=== PATIENT | male | born 1955 | race Caucasian/White ===

== ENCOUNTER 2017-02-18 23:03 | Observation (INO) | payer MEDICAID ==
[2017-02-19] MEDS ORDERED: Sodium Chloride 0.9% 10 ML Syringe FLUSH PRN (00:19)
[2017-02-19] MEDS ORDERED: HYDROmorphone 1 MG/ML Syringe IVPUSH ONE (00:19)
[2017-02-19] MEDS ORDERED: Iopamidol 612 MG/ML 100 ML Bottle IV PRN (02:42)
--- NOTE | 2017-02-19 03:24 | EDM.PDOC ---
ED HPI LOWER BACK PAIN/INJURY - General Chief Complaint: Back Pain or Injury Stated Complaint: fell hurt back Time Seen by Provider: 02/19/17 00:19 Source: Reports: Patient History Limitations: Reports: No limitations - History of Present Illness INITIAL COMMENTS - FREE TEXT/NARRATIVE: This patient was working on a ladder about mid afternoon when he fell approximately 4 or 5 feet. He landed on his rear end and back. He he said that at first it didn't hurt but after a few hours she started having a lot of lumbar pain on the left side. He denies any muscle weakness or any radiation to his legs. When the pain got worse his brought him to the hospital. He' s not having any kind of shortness of breath or chest pain. - Related Data Allergies/ADRs: Allergies Allergy/AdvReac Type Severity Reaction Status Date / Time No Known Allergies Allergy Verified 02/17/16 22:57 Home Meds: Home Meds Lisinopril [Prinivil] 10 mg PO DAILY 02/17/16 [History] Metoprolol Succinate 100 mg PO DAILY 02/17/16 [History] Naproxen [Naprosyn] 500 mg PO BID 02/17/16 [History] amLODIPine Besylate [Amlodipine Besylate] 10 mg PO DAILY 02/17/16 [History] atorvaSTATin [Lipitor] 20 mg PO BEDTIME 02/17/16 [History] DULoxetine [Cymbalta] 40 mg PO DAILY 02/18/17 [History] tiZANidine HCl [Tizanidine HCl] 2 mg PO Q8HR PRN 02/18/17 [History] traZODone HCl [Trazodone HCl] 2 tab PO BEDTIME 02/18/17 [History] Past Medical History Cardiovascular History: Reports: High cholesterol, Hypertension Musculoskeletal History: Reports: Arthritis, Other (see below) 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 Neurological History: Reports: Migraines Psychiatric History: Reports: Anxiety, Depression - Infectious Disease History Infectious Disease History: Reports: Chicken pox - Past Surgical History Musculoskeletal Surgical History: Reports: Hip replacement Social & Family History - Family History Family Medical History: Unobtainable - Tobacco Use Smoking Status *Q: Never Smoker Second Hand Smoke Exposure: No - Caffeine Use Caffeine Use: Reports: Coffee - Recreational Drug Use Recreational Drug Use: No - Living Situation & Occupation Living situation: Reports: , with spouse ED ROS GENERAL - Review of Systems Review Of Systems: See Below Constitutional: Reports: no symptoms HEENT: Reports: No symptoms Respiratory: Reports: No Symptoms Cardiovascular: Reports: No symptoms Endocrine: Reports: no symptoms GI/Abdominal: Reports: No symptoms : Reports: no symptoms Musculoskeletal: Reports: other (See HPI) Skin: Reports: no symptoms Neurological: Reports: No Symptoms Psychiatric: Reports: No symptoms Hematologic/Lymphatic: Reports: no symptoms ED EXAM,LOWER BACK PAIN/INJURY - Physical Exam Exam: See Below Exam Limited By: No limitations General Appearance: alert, WD/WN, moderate distress (Patient is lying on his right side he is able to roll supine during the exam.) Eye Exam: bilateral eye: PERRL Ears: normal external exam Nose: normal inspection Throat/Mouth: Normal inspection Head: atraumatic Neck: normal inspection Respiratory/Chest: lungs clear, chest non-tender Cardiovascular: normal peripheral pulses, regular rate, rhythm GI/Abdominal: normal bowel sounds, soft, non tender Back Exam: other (There is moderate tenderness over the left lumbar paraspinous muscles) Extremities: normal inspection, normal range of motion Neurological: alert, normal mood/affect, normal dorsiflexion, CN II-XII intact, normal plantar flexion Psychiatric: normal affect Skin Exam: Warm Course - Vital Signs Last Recorded V/S: Last Vital Signs Temp 36.8 C 02/19/17 03:32 Pulse 68 02/19/17 03:32 Resp 15 02/19/17 03:32 BP 127/84 02/19/17 03:32 Pulse Ox 96 02/19/17 03:32 - Orders/Labs/Meds Orders: Active Orders 24 hr Category Date Time Status Abdomen Pelvis w Cont [CT] Stat Exams 02/19/17 02:18 Taken Lumbar Spine wo Cont [CT] Stat Exams 02/19/17 00:20 Taken Iopamidol [Isovue-300 (61%)] Med 02/19/17 02:42 Active 100 ml IV . DIRECTED PRN Sodium Chloride 0.9% [Normal Saline] 79 ml Med 02/19/17 02:45 Active IV ASDIRECTED Sodium Chloride 0.9% [Saline Flush] Med 02/19/17 00:19 Active 10 ml FLUSH ASDIRECTED PRN Saline Lock Insert [OM.PC] Urgent Oth 02/19/17 00:19 Ordered Medication Orders Sodium Chloride (Normal Saline) 79 mls @ 3 mls/sec IV ASDIRECTED SHRUTI Last Admin: 02/19/17 02:52 Dose: 3 mls/sec Iopamidol (Isovue-300 (61%)) 100 ml IV . DIRECTED PRN PRN Reason: RADIOLOGY EXAM Stop: 02/20/17 02:43 Last Admin: 02/19/17 02:52 Dose: 100 ml Sodium Chloride (Saline Flush) 10 ml FLUSH ASDIRECTED PRN PRN Reason: Keep Vein Open Last Admin: 02/19/17 00:43 Dose: 10 ml Labs: Laboratory Tests 02/19/17 02/19/17 Range/Units 02:18 02:29 WBC 8.6 (4.5-11.0) K/uL RBC 4.24 L (4.30-5.90) M/uL Hgb 13.2 (12.0-15.0) g/dL Hct 38.3 L (40.0-54.0) % MCV 90 (80-98) fL MCH 31 (27-31) pg MCHC 35 (32-36) % Plt Count 175 (150-400) K/uL Neut % (Auto) 80 H (36-66) % Lymph % (Auto) 11 L (24-44) % Crane % (Auto) 8 H (2-6) % Eos % (Auto) 0 L (2-4) % Baso % (Auto) 1 (0-1) % Sodium 140 (140-148) mmol/L Potassium 4.0 (3.6-5.2) mmol/L Chloride 105 (100-108) mmol/L Carbon Dioxide 27 (21-32) mmol/L Anion Gap 8.5 (5.0-14.0) mmol/L BUN 17 (7-18) mg/dL Creatinine 0.9 (0.8-1.3) mg/dL Est Cr Clr Drug Dosing 90.12 mL/min Estimated GFR (MDRD) > 60 (>60) Glucose 140 H (74-106) mg/dL Calcium 8.6 (8.5-10.1) mg/dL Total Bilirubin 0.4 (0.2-1.0) mg/dL AST 38 H (15-37) U/L ALT 32 (12-78) U/L Alkaline Phosphatase 108 (46-116) U/L Total Protein 6.9 (6.4-8.2) g/dL Albumin 3.8 (3.4-5.0) g/dL Globulin 3.1 (2.3-3.5) g/dL Albumin/Globulin Ratio 1.2 (1.2-2.2) Meds: Medications Generic Name Dose Route Start Last Admin Trade Name Freq PRN Reason Stop Dose Admin Sodium Chloride 79 mls @ 3 mls/sec 02/19/17 02:45 02/19/17 02:52 Normal Saline IV 3 mls/sec ASDIRECTED SHRUTI Administration Iopamidol 100 ml 02/19/17 02:42 02/19/17 02:52 Isovue-300 (61%) IV 02/20/17 02:43 100 ml . DIRECTED PRN Administration RADIOLOGY EXAM Sodium Chloride 10 ml 02/19/17 00:19 02/19/17 00:43 Saline Flush FLUSH 10 ml ASDIRECTED PRN Administration Keep Vein Open Discontinued Medications Generic Name Dose Route Start Last Admin Trade Name Freq PRN Reason Stop Dose Admin Hydromorphone HCl 1 mg 02/19/17 00:19 02/19/17 00:40 Dilaudid IVPUSH 02/19/17 00:20 1 mg ONETIME ONE Administration - Radiology Interpretation Free Text/Narrative:: Lumbar spine CT shows mildly displaced fractures of the spinous processes of L1 through L4. Abdominal CT shows no evidence of any intra-abdominal injuries however he has nondisplaced fractures of the left seventh through 10th ribs. There doesn't appear to be any hemo-thorax. Only the inferior portion of the lungs was visualized on the CT - Re-Assessments/Exams Free Text/Narrative Re-Assessment/Exam: 02/19/17 03:40 An IV was established and he was given a dose of Dilaudid 1 mg and Zofran 4 mg. This gave good pain relief. The patient has not required any further pain medications. I spoke with Dr. Stevens and he will come to the emergency department to admit the patient. At the time he was called for aware of the rib fractures and he' ll be informed that when he gets here Departure - Departure Time of Disposition: 03:40 Disposition: Admitted As Inpatient 68 Condition: fair Clinical Impression: Lumbar transverse process fracture, Multiple fractures of ribs of left side Forms: ED Department Discharge - My Orders Last 24 Hours: My Active Orders 02/19/17 00:19 Sodium Chloride 0.9% [Saline Flush] 10 ml FLUSH ASDIRECTED PRN Saline Lock Insert [OM.PC] Urgent 02/19/17 00:20 Lumbar Spine wo Cont [CT] Stat 02/19/17 02:18 Abdomen Pelvis w Cont [CT] Stat 02/19/17 02:42 Iopamidol [Isovue-300 (61%)] 100 ml IV . DIRECTED PRN 02/19/17 02:45 Sodium Chloride 0.9% [Normal Saline] 79 ml IV ASDIRECTED - Assessment/Plan Last 24 Hours: My Active Orders 02/19/17 00:19 Sodium Chloride 0.9% [Saline Flush] 10 ml FLUSH ASDIRECTED PRN Saline Lock Insert [OM.PC] Urgent 02/19/17 00:20 Lumbar Spine wo Cont [CT] Stat 02/19/17 02:18 Abdomen Pelvis w Cont [CT] Stat 02/19/17 02:42 Iopamidol [Isovue-300 (61%)] 100 ml IV . DIRECTED PRN 02/19/17 02:45 Sodium Chloride 0.9% [Normal Saline] 79 ml IV ASDIRECTED
[2017-02-19] MEDS ORDERED: Docusate Sodium 100 MG Cap PO PRN (04:22)
[2017-02-19] MEDS ORDERED: tiZANidine 2 MG Tab PO PRN (04:26)
[2017-02-19] MEDS ORDERED: Sodium Chloride 0.9% 1,000 ML IV SCH (04:30)
[2017-02-19] MEDS ORDERED: HYDROmorphone 1 MG/ML Syringe IVPUSH PRN (04:34)
--- NOTE | 2017-02-19 05:26 | HP ---
CHIEF COMPLAINT: Pain. HISTORY OF PRESENT ILLNESS: A 62-year-old, who has Erb's palsy on the left side from trauma, was up on a ladder about 4-5 feet, lost balance and was between house and tree and landed directly on his left buttock, had quite a bit of pain. brought him in for further evaluation to the emergency room, was evaluated by the emergency room physician, was noted to have mildly displaced fractures of left transverse process of L1, 2, 3, 4 and also multiple rib fractures. I was asked to evaluate the patient further evaluation and treatment for pain control. Apparently, this is his 3rd fall in the last few months, slipped on ice, also had a foster dog that pulled him over. This is by far the worst injury. PAST MEDICAL HISTORY: 1. Depression. 2. Erb's palsy, adverse trauma. 3. Essential hypertension. 4. Arthritis. 5. 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 6. Two replaced hips on the left side in the past. MEDICATIONS: Cymbalta 40 mg daily, Zanaflex 2 mg every 8 hours as needed for muscle spasm, lisinopril 10 mg daily, trazodone 50 mg tablets two tablets at bedtime, naproxen 500 mg b.i.d. p.r.n., Toprol-XL 100 mg daily, amlodipine 10 mg daily, atorvastatin 20 mg daily. ALLERGIES: NO KNOWN DRUG ALLERGIES. SOCIAL HISTORY: He never smoked. FAMILY HISTORY: Noncontributory. REVIEW OF SYSTEMS: Denies headaches, vision changes, upper respiratory symptoms. Does have chest pain with deep breathing and coughing on the left side. No nausea, vomiting, diarrhea, constipation. No urinary problems reported. No swelling in his legs. No pain in his legs or arms. Does have Erb's palsy with dysfunction to his left arm. No skin problems. No other neurologic complaints. He does have severe pain in left lower back. OBJECTIVE: VITAL SIGNS: Weight 106 kg, temp 36.8, pulse 68, blood pressure 127/84, O2 saturation 96% on room air. GENERAL: The patient is alert and oriented x3. HEENT: Head is unremarkable, atraumatic. Pharynx is clear. NECK: Supple. Full range of motion. BACK: He did have quite a bit of discomfort in the left lower back along with the left ribs. LUNGS: Clear. HEART: Regular without murmurs. ABDOMEN: Soft, nontender. No mass or organomegaly palpated. EXTREMITIES: No edema. No pain or deformity or bruising. SKIN: Negative. NEURO: Cranial 2-12 are grossly intact. Has had Erb's palsy in his left arm. LABORATORY DATA: White count 8.6, hemoglobin 13.2, platelets 175,000. Sodium 140, potassium 4.0, chloride 105, creatinine 0.9, BUN 17, glucose 140. Liver functions were normal. CT scan of his back showed mildly displaced fracture of the left transverse process of L1, 2, 3, and 4 and also multiple rib fractures, left side. ASSESSMENT: Severe pain with multiple transverse process fractures and rib fractures. PLAN: We will admit him under observation. Anticipate less than two midnight stay. Was admitted for pain control. Will be aggressive for bowels. Make sure that he can get up and move around for being able to go home. Other medical problems as listed above. Derrell Stevens MD /[id number]
[2017-02-19] MEDS: Acetaminophen/oxyCODONE 325-5 MG Tab PO PRN ×3 (05:28→20:41)
[2017-02-19] MEDS: Naproxen 250 MG Tab PO SCH ×2 (09:08→20:39)
[2017-02-19] MEDS: Lisinopril 10 MG Tab PO SCH (09:09)
[2017-02-19] MEDS: amLODIPine 10 MG Tab PO SCH (09:09)
[2017-02-19] MEDS: DULoxetine 20 MG Cap PO SCH (09:10)
[2017-02-19] MEDS: Metoprolol Succinate 50 MG Tab.ER PO SCH (09:10)
[2017-02-19] MEDS ORDERED: HYDROmorphone 0.5 MG/0.5 ML Syringe IVPUSH PRN (13:29)
--- NOTE | 2017-02-19 13:36 | PCM.PN ---
- General Info Date of Service: 02/19/17 Functional Status: Reports: ambulating, urinating - Review of Systems General: Reports: No Symptoms Pulmonary: Reports: no symptoms, pleuritic chest pain. Denies: shortness of breath, cough, sputum, hemoptysis, wheezing Cardiovascular: Reports: No Symptoms Gastrointestinal: Reports: No symptoms Musculoskeletal: Reports: back pain Systems Review Comment:: This patient is a 62-year-old gentleman who unfortunately fell off of a ladder yesterday and experienced for transverse process fractures L1 through L4. He has had severe back pain and difficulty with transfers and ambulation, was admitted for observation and management of pain. - Patient Data Vitals - most recent: Last Vital Signs Temp 95.9 F 02/19/17 07:30 Pulse 62 02/19/17 09:10 Resp 16 02/19/17 07:30 BP 128/86 02/19/17 09:10 Pulse Ox 94 L 02/19/17 07:30 Weight - most recent: 230 lb I&O - last 24 hours: Intake & Output 02/18/17 02/19/17 02/19/17 22:59 06:59 14:59 Output Total 325 Balance -325 Med Orders - Current: Current Medications Amlodipine Besylate (Norvasc) 10 mg PO DAILY [facility] Last Admin: 02/19/17 09:09 Dose: 10 mg Atorvastatin Calcium (Lipitor) 20 mg PO BEDTIME [facility] Docusate Sodium (Colace) 100 mg PO BID PRN PRN Reason: Constipation Duloxetine HCl (Cymbalta) 40 mg PO DAILY [facility] Last Admin: 02/19/17 09:10 Dose: 40 mg Hydromorphone HCl (Dilaudid) 0.5 mg IVPUSH Q2H PRN PRN Reason: Pain Lisinopril (Prinivil) 10 mg PO DAILY [facility] Last Admin: 02/19/17 09:09 Dose: 10 mg Metoprolol Succinate (Toprol Xl) 100 mg PO DAILY [facility] Last Admin: 02/19/17 09:10 Dose: 100 mg Naproxen (Naprosyn) 500 mg PO BID [facility] Last Admin: 02/19/17 09:08 Dose: 500 mg Oxycodone/Acetaminophen (Percocet 325-5 Mg) 2 tab PO Q4H PRN PRN Reason: Pain (moderate 4-6) Last Admin: 02/19/17 05:28 Dose: 2 tab Tizanidine HCl (Zanaflex) 2 mg PO Q8H PRN PRN Reason: Spasms Trazodone HCl (Trazodone) 100 mg PO BEDTIME SHRUTI Discontinued Medications Hydromorphone HCl (Dilaudid) 1 mg IVPUSH ONETIME ONE Stop: 02/19/17 00:20 Last Admin: 02/19/17 00:40 Dose: 1 mg Hydromorphone HCl (Dilaudid) 1 mg IVPUSH Q1H PRN PRN Reason: Pain Sodium Chloride (Normal Saline) 79 mls @ 3 mls/sec IV ASDIRECTED [facility] Last Admin: 02/19/17 02:52 Dose: 3 mls/sec Sodium Chloride (Normal Saline) 1,000 mls @ 75 mls/hr IV ASDIRECTED SHRUTI Last Admin: 02/19/17 05:30 Dose: 75 mls/hr Iopamidol (Isovue-300 (61%)) 100 ml IV . DIRECTED PRN PRN Reason: RADIOLOGY EXAM Stop: 02/20/17 02:43 Last Admin: 02/19/17 02:52 Dose: 100 ml Sodium Chloride (Saline Flush) 10 ml FLUSH ASDIRECTED PRN PRN Reason: Keep Vein Open Last Admin: 02/19/17 00:43 Dose: 10 ml - Exam Quality Assessment: DVT prophylaxis General: alert, oriented, cooperative Lungs: Clear to auscultation, Normal respiratory effort Cardiovascular: Regular Rate, Regular Rhythm, No Murmurs Abdomen: bowel sounds present, soft, no tenderness, no distension Extremities: no edema Skin: warm, dry, intact - Problem List Review Problem List Initiated/Reviewed/Updated: Yes - My Orders Last 24 Hours: My Active Orders 02/19/17 13:28 Convert IV to Saline Lock [OM.PC] Routine 02/19/17 13:29 HYDROmorphone [Dilaudid] 0.5 mg IVPUSH Q2H PRN - Plan Plan:: ASSESSMENT AND PLAN MULTIPLE TRANSVERSE PROCESS FRACTURES LUMBAR SPINE-secondary to traumatic injury , question also of rib fractures. Patient states that when he fell approximately 3 weeks ago was told that he experienced some rib fractures. -Pain medication as needed -Incentive spirometry -Ambulate patient 4 times daily -Outpatient followup with orthopedics [place] HISTORY OF DEPRESSION -Continue outpatient medical regimen MAINTENANCE ISSUES -DVT prophylaxis; SCUDs -GI prophylaxis; not indicated -Mills catheter; none indicated -Nutrition; regular diet -Nicotinic dependence; not required CODE STATUS-FULL CODE ADMISSION STATUS-this patient will be admitted to observation status, expect no more than a one night hospital stay for evaluation and management of problems as outlined above. DISPOSITION-anticipate discharge to home after the hospital stay. PRIMARY CARE PROVIDER-Jersey Odell
[2017-02-19] MEDS ORDERED: atorvaSTATin 20 MG Tab PO SCH (21:00)
[2017-02-19] MEDS ORDERED: traZODone 50 MG Tab PO SCH (21:00)
[2017-02-20] MEDS: Naproxen 250 MG Tab PO SCH (08:59)
[2017-02-20] MEDS: DULoxetine 20 MG Cap PO SCH (08:59)
[2017-02-20] MEDS: amLODIPine 10 MG Tab PO SCH (09:00)
[2017-02-20] MEDS: Lisinopril 10 MG Tab PO SCH (09:00)
[2017-02-20] MEDS: Metoprolol Succinate 50 MG Tab.ER PO SCH (09:00)
--- NOTE | 2017-02-20 10:56 | PCM.DCSUM1 ---
Discharge Summary - Hospital Course Brief History: Is patient is a 62-year-old gentleman who was admitted through the emergency department to observation status from pain management secondary to several fractures of transverse process of the lumbar spine. - Discharge Data Discharge Date: 02/20/17 Discharge Disposition: Home, Self-Care 01 Condition: Stable - Discharge Diagnosis/Problem(s) (1) Lumbar transverse process fracture SNOMED Code(s): 441313167 ICD Code: S32.008A - OTH FRACTURE OF UNSP LUMBAR VERTEBRA, INIT FOR CLOS FX Status: Acute Current Visit: Yes (2) Multiple fractures of ribs of left side SNOMED Code(s): 9707249 ICD Code: S22.42XA - MULTIPLE FRACTURES OF RIBS, LEFT SIDE, INIT FOR CLOS FX Status: Acute Current Visit: Yes - Patient Summary/Data Hospital Course: This patient is a 62-year-old gentleman who fell off a ladder landing on his left side. He was evaluated in the emergency department and found to have fractures of the transverse processes L1-L4. He was also noted to have rib fractures, patient felt some of these were likely old related to a fall about 3 weeks ago. He was admitted to the hospital and initially given IV fluids for hydration as well as IV and oral pain medication. The day of discharge was able to transfer and ambulate short distances, he will be discharged home on oral pain medication. Activity will be very limited but he will resume his usual diet. Followup appointment will be scheduled with his primary care provider Jersey Odell within one week. Appointment will be scheduled with Dr. Cristóbal Chris for followup of the fractures in 7-10 days. - Patient Instructions Diet: Usual Diet as Tolerated Activity: No Lifting Over 10 Pounds, No Strenuous Activities Other/Special Instructions: Please schedule followup appointment with Jersey Odell within one week. Please schedule appointment with Dr. Cristóbal Chris in 7- 10 days. - Discharge Plan Prescriptions/Med Rec: Acetaminophen/oxyCODONE [Percocet 325-5 MG] 1 - 2 tab PO Q4H PRN #40 tablet PRN Reason: Pain Docusate Sodium [Colace] 100 mg PO BID #30 cap Home Medications: Home Meds Lisinopril [Prinivil] 10 mg PO DAILY 02/17/16 [History] Metoprolol Succinate 100 mg PO DAILY 02/17/16 [History] Naproxen [Naprosyn] 500 mg PO BID 02/17/16 [History] amLODIPine Besylate [Amlodipine Besylate] 10 mg PO DAILY 02/17/16 [History] atorvaSTATin [Lipitor] 20 mg PO BEDTIME 02/17/16 [History] DULoxetine [Cymbalta] 40 mg PO DAILY 02/18/17 [History] tiZANidine HCl [Tizanidine HCl] 2 mg PO Q8HR PRN 02/18/17 [History] traZODone HCl [Trazodone HCl] 2 tab PO BEDTIME 02/18/17 [History] Acetaminophen/oxyCODONE [Percocet 325-5 MG] 1 - 2 tab PO Q4H PRN #40 tablet 07/31 [Rx] Docusate Sodium [Colace] 100 mg PO BID #30 cap 02/20/17 [Rx] Referrals: Jersey Odell, KARIE [Primary Care Provider] - - Patient Data Vitals - Most Recent: Last Vital Signs Temp 95.2 F L 02/20/17 07:30 Pulse 62 02/20/17 09:00 Resp 20 02/20/17 07:30 BP 118/84 02/20/17 09:00 Pulse Ox 95 02/20/17 07:30 Weight - Most Recent: 230 lb I&O - Last 24 hours: Intake & Output 02/19/17 02/20/17 02/20/17 22:59 06:59 14:59 Intake Total 690 300 Balance 690 300 Med Orders - Current: Current Medications Amlodipine Besylate (Norvasc) 10 mg PO DAILY [facility] Last Admin: 02/20/17 09:00 Dose: 10 mg Atorvastatin Calcium (Lipitor) 20 mg PO BEDTIME [facility] Last Admin: 02/19/17 20:38 Dose: 20 mg Docusate Sodium (Colace) 100 mg PO BID PRN PRN Reason: Constipation Duloxetine HCl (Cymbalta) 40 mg PO DAILY [facility] Last Admin: 02/20/17 08:59 Dose: 40 mg Hydromorphone HCl (Dilaudid) 0.5 mg IVPUSH Q2H PRN PRN Reason: Pain Lisinopril (Prinivil) 10 mg PO DAILY [facility] Last Admin: 02/20/17 09:00 Dose: 10 mg Metoprolol Succinate (Toprol Xl) 100 mg PO DAILY [facility] Last Admin: 02/20/17 09:00 Dose: 100 mg Naproxen (Naprosyn) 500 mg PO BID [facility] Last Admin: 02/20/17 08:59 Dose: 500 mg Oxycodone/Acetaminophen (Percocet 325-5 Mg) 2 tab PO Q4H PRN PRN Reason: Pain (moderate 4-6) Last Admin: 02/19/17 20:41 Dose: 1 tab Tizanidine HCl (Zanaflex) 2 mg PO Q8H PRN PRN Reason: Spasms Trazodone HCl (Trazodone) 100 mg PO BEDTIME [facility] Last Admin: 02/19/17 20:39 Dose: 100 mg Discontinued Medications Hydromorphone HCl (Dilaudid) 1 mg IVPUSH ONETIME ONE Stop: 02/19/17 00:20 Last Admin: 02/19/17 00:40 Dose: 1 mg Hydromorphone HCl (Dilaudid) 1 mg IVPUSH Q1H PRN PRN Reason: Pain Sodium Chloride (Normal Saline) 79 mls @ 3 mls/sec IV ASDIRECTED [facility] Last Admin: 02/19/17 02:52 Dose: 3 mls/sec Sodium Chloride (Normal Saline) 1,000 mls @ 75 mls/hr IV ASDIRECTED [facility] Last Admin: 02/19/17 05:30 Dose: 75 mls/hr Iopamidol (Isovue-300 (61%)) 100 ml IV . DIRECTED PRN PRN Reason: RADIOLOGY EXAM Stop: 02/20/17 02:43 Last Admin: 02/19/17 02:52 Dose: 100 ml Sodium Chloride (Saline Flush) 10 ml FLUSH ASDIRECTED PRN PRN Reason: Keep Vein Open Last Admin: 02/19/17 00:43 Dose: 10 ml *Q Meaningful Use (DIS) - VTE *Q VTE Criteria *Q: - Stroke *Q Stroke Criteria *Q: - AMI *Q AMI Criteria *Q:
[2017-02-20 12:18] VITALS: BP 125/82
== END 2017-02-20 13:50 | disposition home or self-care (01) ==
LOC: JP.ED 23:03 → JP.MS 02-19 04:22
PROVIDERS: ADMIT Family Medicine; ATTEND Hospitalist
DX: S32.008A Other fracture of unspecified lumbar vertebra, initial encounter for closed fracture (principal); S22.42XA Multiple fractures of ribs, left side, initial encounter for closed fracture; I10 Essential (primary) hypertension; F32.9 Major depressive disorder, single episode, unspecified; F41.9 Anxiety disorder, unspecified; W11.XXXA Fall on and from ladder, initial encounter; Z79.899 Other long term (current) drug therapy
CPT/HCPCS: 36415; 72131; 74177; 80053; 85025; 96361; 96374; 99285; A9270; G0378; J1170; J7030; J7040; J7050; Q9967

== ENCOUNTER 2017-06-24 06:21 | Day surgery (SDC) | payer MEDICARE, MEDICAID ==
[2017-06-24] MEDS ORDERED: Sodium Chloride 0.9% 1,000 ML IV SCH (07:00)
[2017-06-24] MEDS ORDERED: Propofol 200 MG/20 ML SDV ONE (07:17)
[2017-06-24] MEDS ORDERED: fentaNYL 100 MCG/2 ML SDV ONE (07:17)
[2017-06-24] MEDS ORDERED: Midazolam 1 MG/ML 2 ML SDV ONE (07:18)
--- NOTE | 2017-06-24 11:34 | OR ---
DATE OF PROCEDURE: 06/24/2017 PROCEDURE PERFORMED: Colonoscopy. FINDINGS: Sigmoid colon polyp, approximately 5 mm, completely removed using cold biopsy forceps. PREOPERATIVE DIAGNOSIS: History of colon polyps/screening colonoscopy. POSTOPERATIVE DIAGNOSIS: History of colon polyps/screening colonoscopy. RISKS: Risks, benefits, alternatives, limitations including but not limited to infection, bleeding, and perforation were explained to the patient and they wished to proceed. PROCEDURE IN DETAIL: The patient was placed in left lateral decubitus position. Digital rectal exam was performed without abnormality. Scope was introduced and advanced atraumatically to the ileocecal valve. The scope was brought back to the ascending, transverse, descending colon, and retroflexed. In the sigmoid colon, a 5 mm polyp was identified and completely removed. No other abnormalities were noted. No diverticulosis. No masses. No blood. The patient tolerated the procedure well. Ki Doll MD /[id number]
[2017-06-24 12:40] VITALS: BP 111/72
== END 2017-06-24 10:15 | disposition home or self-care (01) ==
LOC: JP.SDS 06:21
PROVIDERS: ATTEND Surgery
DX: Z12.11 Encounter for screening for malignant neoplasm of colon (principal); K63.5 Polyp of colon; Z86.010 Personal history of colon polyps; I10 Essential (primary) hypertension; F32.9 Major depressive disorder, single episode, unspecified; Z91.040 Latex allergy status
CPT/HCPCS: 45380; 88305; J2250; J2704; J3010; J7040

== ENCOUNTER 2021-02-24 07:06 | Day surgery (SDC) | payer MEDICARE, MEDICAID ==
[2021-02-24] MEDS ORDERED: fentaNYL 100 MCG/2 ML SDV ONE (07:25)
[2021-02-24] MEDS ORDERED: Propofol 200 MG/20 ML SDV ONE (07:25)
[2021-02-24] MEDS ORDERED: Midazolam 1 MG/ML 2 ML SDV ONE (07:25)
[2021-02-24] MEDS ORDERED: Dextrose 5%-Lactated Ringers 1,000 ML IV SCH (07:30)
[2021-02-24 12:07] VITALS: BP 92/58; PULSE 48
--- NOTE | 2021-03-02 12:32 | OR ---
DATE OF PROCEDURE: 02/24/2021 SURGEON: Alejandro Chris MD PREOPERATIVE DIAGNOSES: 1. History of painless rectal bleeding. 2. History of hyperplastic colon polyps. POSTOPERATIVE DIAGNOSES: 1. Engorged internal hemorrhoid, likely accounting for the patient's recent rectal bleeding. 2. Uncomplicated left colonic diverticulosis. 3. No recurrent polyps. OPERATIVE PROCEDURES: 1. Flexible colonoscopy (23566). 2. Anoscopy with hemorrhoid banding x2 (53867). ANESTHESIA: IV sedation. INDICATION FOR PROCEDURE: A 66-year-old presenting with a history of recent painless rectal bleeding, does have history of hyperplastic polyps in the past. The plan is to proceed with a colonoscopy with biopsies and/or polypectomy as well as possible hemorrhoid banding. Potential risks including bleeding, infection, perforation and such, pain related to banding that could occur were all reviewed, and the patient wishes to proceed. DETAILS OF PROCEDURE: The patient was taken to the operating room and placed in a left lateral decubitus position. IV sedation was administered, after which the initial digital rectal exam was performed and was unremarkable. Colonoscope was then passed into the rectum with retroflexion revealing 2 large hemorrhoidal columns, both of which were somewhat engorged and would likely account for the patient's recent bleeding. Scope was eventually then passed to the cecum. The prep was quite good. Only a small amount of liquid stool was present. The patient had some left colonic diverticulosis which otherwise was unremarkable. There otherwise were no areas of colitis and no areas of additional polyp formations or other signs of neoplasia. Scope was then withdrawn and that phase of the procedure then concluded. Using the gastroscope, anoscopy was then performed, and using the hemorrhoid banding instrumentation employed with the gastroscope, the apex of the 2 engorged hemorrhoidal columns were pulled up, suctioned, and banded. Both bands appeared to be satisfactory. No bleeding or other complications were noted and the procedure then concluded. The patient was taken to the recovery room in satisfactory condition. The patient was instructed that if he has persistent rectal bleeding beyond 3 weeks, we can see him back regarding additional hemorrhoid banding. Otherwise, with history of previous polyps and extensive diverticular disease making visualization of the entire colonic mucosa in that areas , recommendation would be to repeat the colonoscopy in 5 years. Alejandro Chris MD /[id number]
== END 2021-02-24 12:08 | disposition home or self-care (01) ==
LOC: JP.SDS 07:06
PROVIDERS: ATTEND Surgery
DX: K57.30 Diverticulosis of large intestine without perforation or abscess without bleeding (principal); K64.8 Other hemorrhoids; I10 Essential (primary) hypertension; Z86.010 Personal history of colon polyps; Z91.040 Latex allergy status
CPT/HCPCS: 45378; 46221; J2250; J2704; J3010; J7121

== ENCOUNTER 2021-10-12 15:24 | Emergency (ER) | payer MEDICARE, MEDICAID ==
--- NOTE | 2021-10-12 16:34 | EDM.PDOC ---
ED HPI GENERAL MEDICAL PROBLEM - General Chief Complaint: General Stated Complaint: COVID POSITIVE- FATIGUE, NO APPETITE Time Seen by Provider: 10/12/21 16:10 Source of Information: Reports: Patient, Old Records History Limitations: Reports: No Limitations - History of Present Illness INITIAL COMMENTS - FREE TEXT/NARRATIVE: 66 yo male is here with his . He was dx'd about 11 d ago with Covid and has been extremely fatigued, FRIEND, and no appetite. No fever. No nausea or diarrhea. He has not been able to get an appt with his doctor since his dx. He was not vaccinated for Covid. He is sleeping a lot. Has lost weight. Onset: Gradual Onset Date: 10/02/21 Duration: Day(s): (11), Constant Location: Reports: Generalized Quality: Reports: Other (pain is not a major issue) Severity: Moderate (fatigue and FRIEND) Improves with: Reports: None Worsens with: Reports: Movement (exertion) Context: Reports: Other (See HPI) Associated Symptoms: Reports: Loss of Appetite, Malaise, Shortness of Breath (with exertion), Other (fatigue). Denies: Chest Pain, Fever/Chills Treatments ADVISORY INTERN: Reports: Other (see below) (none) - Related Data Allergies Allergy/AdvReac Type Severity Reaction Status Date / Time benzoin Allergy Cannot Verified 10/12/21 16:34 Remember latex Allergy Rash Verified 10/12/21 16:34 Home Meds: Home Meds Metoprolol Succinate 100 mg PO DAILY 02/17/16 [History] Naproxen [Naprosyn] 500 mg PO BID 02/17/16 [History] amLODIPine Besylate [Amlodipine Besylate] 10 mg PO DAILY 02/17/16 [History] atorvaSTATin [Lipitor] 20 mg PO BEDTIME 02/17/16 [History] lisinopriL [Prinivil] 10 mg PO DAILY 02/17/16 [History] DULoxetine [Cymbalta] 40 mg PO DAILY 02/18/17 [History] Tamsulosin [Flomax] 0.4 mg PO DAILY 02/20/21 [History] Past Medical History HEENT History: Reports: None Cardiovascular History: Reports: High Cholesterol, Hypertension, SOB on Exertion Gastrointestinal History: Reports: Colon Polyp, Hemorrhoids Genitourinary History: Reports: BPH, Renal Calculus Musculoskeletal History: Reports: Osteoporosis, Other (See Below) 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 Neurological History: Reports: Migraines Psychiatric History: Reports: Anxiety, Depression Endocrine/Metabolic History: Reports: Obesity/BMI 30+ - Infectious Disease History Infectious Disease History: Reports: Measles, Mumps, Other (See Below) Other Infectious Disease History: Sepsis - Past Surgical History HEENT Surgical History: Reports: Oral Surgery Cardiovascular Surgical History: Reports: None GI Surgical History: Reports: Colonoscopy Male Surgical History: Reports: None Endocrine Surgical History: Reports: None Neurological Surgical History: Reports: None Musculoskeletal Surgical History: Reports: Arthroscopic Knee, Hip Replacement Dermatological Surgical History: Reports: None Social & Family History - Family History Family Medical History: Unobtainable - Caffeine Use Caffeine Use: Reports: Coffee - Living Situation & Occupation Living situation: Reports: , with Spouse ED ROS GENERAL - Review of Systems Review Of Systems: See Below Constitutional: Reports: Malaise, Fatigue, Decreased Appetite. Denies: Fever, Chills HEENT: Reports: No Symptoms Respiratory: Reports: No Symptoms Cardiovascular: Reports: Dyspnea on Exertion Endocrine: Reports: No Symptoms GI/Abdominal: Reports: Decreased Appetite : Reports: No Symptoms Musculoskeletal: Reports: No Symptoms Skin: Reports: No Symptoms Neurological: Reports: No Symptoms Psychiatric: Reports: No Symptoms ED EXAM, GENERAL - Physical Exam Exam: See Below Exam Limited By: No Limitations General Appearance: Alert, WD/WN, No Apparent Distress Eye Exam: Bilateral Eye: Normal Inspection Ears: Normal External Exam, Normal Canal, Hearing Grossly Normal Ear Exam: Bilateral Ear: Auricle Normal, Canal Normal Nose: No Blood Throat/Mouth: Normal Inspection, Normal Lips, Normal Oropharynx, Normal Voice, No Airway Compromise Head: Atraumatic, Normocephalic Neck: Normal Inspection Respiratory/Chest: No Respiratory Distress, Lungs Clear, Normal Breath Sounds, No Accessory Muscle Use Cardiovascular: Regular Rate, Rhythm, No Edema GI/Abdominal: Soft, Non-Tender Back Exam: Normal Inspection. No: CVA Tenderness (R), CVA Tenderness (L) Extremities: Normal Inspection, Normal Range of Motion, Non-Tender, No Pedal Edema Neurological: Alert, Oriented, CN II-XII Intact, Normal Cognition, No Motor/Sensory Deficits Psychiatric: Normal Affect, Normal Mood Skin Exam: Warm, Dry, Intact, Normal Color, No Rash Course - Vital Signs Last Recorded V/S: Last Vital Signs Temp 36.6 C 10/12/21 16:37 Pulse 85 10/12/21 16:37 Resp 18 10/12/21 16:37 BP 106/64 10/12/21 16:37 Pulse Ox 97 10/12/21 16:37 - Orders/Labs/Meds Orders: Active Orders 24 hr Category Date Time Status Lactated Ringers [Ringers, Lactated] 1,000 ml Med 10/12/21 16:54 Active IV BOLUS Medication Orders Lactated Ringer's (Ringers, Lactated) 1,000 mls @ 1,000 mls/hr IV BOLUS ONE Stop: 10/12/21 17:53 Last Admin: 10/12/21 17:18 Dose: 1,000 mls/hr Documented by: SILVANA Labs: Laboratory Tests 10/12/21 10/12/21 10/12/21 Range/Units 14:50 16:29 16:57 WBC 5.2 (4.5-11.0) K/uL RBC 4.65 (4.30-5.90) M/uL Hgb 14.1 (12.0-15.0) g/dL Hct 42.1 (40.0-54.0) % MCV 91 (80-98) fL MCH 30 (27-31) pg MCHC 34 (32-36) % Plt Count 251 (150-400) K/uL Sodium 138 L (140-148) mmol/L Potassium 3.9 (3.6-5.2) mmol/L Chloride 100 (100-108) mmol/L Carbon Dioxide 27 (21-32) mmol/L Anion Gap 14.9 H (5.0-14.0) mmol/L BUN 18 (7-18) mg/dL Creatinine 1.2 (0.8-1.3) mg/dL Est Cr Clr Drug Dosing 64.21 mL/min Estimated GFR (MDRD) > 60 (>60) Glucose 117 H (74-106) mg/dL Calcium 8.3 L (8.5-10.1) mg/dL Urine Color [place] A (YELLOW) Urine Appearance Slightly cloudy A (CLEAR) Urine pH 6.0 (5.0-8.0) Ur Specific [place] 1.025 (1.008-1.030) Urine Protein 30 H (NEGATIVE) mg/dL Urine Glucose (UA) Negative (NEGATIVE) mg/dL Urine Ketones Negative (NEGATIVE) mg/dL Urine Occult Blood Negative (NEGATIVE) Urine Nitrite Negative (NEGATIVE) Urine Bilirubin Small H (NEGATIVE) Urine Urobilinogen 1.0 (0.2-1.0) EU/dL Ur Leukocyte Esterase Negative (NEGATIVE) Urine RBC 0-5 (0-5) Urine WBC Not seen (0-5) Ur Epithelial Cells Few Amorphous Sediment Not seen Urine Bacteria Few Urine Mucus Moderate Meds: Medications Generic Name Dose Route Start Last Admin Trade Name Freq PRN Reason Stop Dose Admin Lactated Ringer's 1,000 mls @ 1,000 mls/hr 10/12/21 16:54 10/12/21 17:18 Ringers, Lactated IV 10/12/21 17:53 1,000 mls/hr BOLUS ONE Administration Departure - Departure Time of Disposition: 18:20 Disposition: Home, Self-Care 01 Condition: Fair Clinical Impression: Mild dehydration - Discharge Information *PRESCRIPTION DRUG MONITORING PROGRAM REVIEWED*: Not Applicable *COPY OF PRESCRIPTION DRUG MONITORING REPORT IN PATIENT AUBRIE: Not Applicable Instructions: Dehydration, Adult, [id number] Referrals: Derrell Stevens MD [Primary Care Provider] - Forms: ED Department Discharge Additional Instructions: Drink enough fluids so that your urine is light yellow in color. Recheck as needed. Sepsis Event Note (ED) - Focused Exam Vital Signs: Vital Signs Temp Pulse Resp BP Pulse Ox 10/12/21 16:37 36.6 C 85 18 106/64 97 10/12/21 16:14 36.6 C 85 18 106/64 97 - My Orders Last 24 Hours: My Active Orders 10/12/21 16:54 Lactated Ringers [Ringers, Lactated] 1,000 ml IV BOLUS - Assessment/Plan Last 24 Hours: My Active Orders 10/12/21 16:54 Lactated Ringers [Ringers, Lactated] 1,000 ml IV BOLUS
[2021-10-12] MEDS ORDERED: Lactated Ringers 1,000 ML IV ONE (16:54)
[2021-10-12 18:31] VITALS: BP 98/63; PULSE 63
== END 2021-10-12 18:30 | disposition home or self-care (01) ==
LOC: JP.ED 15:24
DX: E86.0 Dehydration (principal); E78.00 Pure hypercholesterolemia, unspecified; I10 Essential (primary) hypertension; N40.0 Benign prostatic hyperplasia without lower urinary tract symptoms; E66.9 Obesity, unspecified; Z68.31 Body mass index [BMI] 31.0-31.9, adult; Z91.048 Other nonmedicinal substance allergy status; Z91.040 Latex allergy status; Z79.899 Other long term (current) drug therapy
CPT/HCPCS: 36415; 80048; 81001; 85027; 99283; J7120

== ENCOUNTER 2025-01-03 17:14 | Emergency (ER) | payer MEDICAID, MEDICARE ==
[2025-01-03 17:45] LABS: BASOPHILS ABSOLUTE AUTO 0.08 K/uL (0.00-0.10); BASOPHILS PERCENT AUTO 0.7 % (0.1-1.3); EOSINOPHILS ABSOLUTE AUTO 0.03 K/uL (0.00-0.40); EOSINOPHILS PERCENT AUTO 0.2 % (0.0-5.4); HEMATOCRIT 42.7 % (38.4-49.7); HEMOGLOBIN 14.7 g/dL (12.9-16.9); IMMATURE GRAN ABSOLUTE AUTO 0.03 K/uL (0.00-0.23); IMMATURE GRAN PERCENT AUTO 0.2 % (0.0-0.7); LYMPHOCYTES ABSOLUTE AUTO 0.97 K/uL (0.8-3.3); MEAN CORPUSCULAR HEMOGLOBIN 31.5 pg (31.6-35.5); MEAN CORPUSCULAR HGB CONC 34.4 g/dL (31.6-35.5); MEAN CORPUSCULAR VOLUME 91.4 fL (81.4-99.0); MONOCYTES ABSOLUTE AUTO 0.39 K/uL (0.20-0.90); MONOCYTES PERCENT AUTO 3.2 % (3.3-12.6); NEUTROPHILS ABSOLUTE AUTO 10.55 K/uL (1.0-7.6); NEUTROPHILS PERCENT AUTO 87.7 % (40.0-78.1); PLATELET COUNT,PLT 244 K/uL (130-375); RED BLOOD CELL COUNT 4.67 M/uL (4.14-5.76); WHITE BLOOD CELL COUNT,WBC 12.1 K/uL (3.2-11.0)
[2025-01-03] MEDS: Sodium Chloride 0.9% 80 ML IV SCH (18:00)
[2025-01-03] MEDS: Iopamidol 612 MG/ML 100 ML Bottle IV SCH (18:00)
[2025-01-03 18:06] LABS: A/G RATIO 1.3 (1.2-2.2); ALANINE AMINOTRANSFERASE,ALT 29 U/L (12-78); ALBUMIN 4.2 g/dL (3.4-5.0); ALKALINE PHOSPHATASE 79 U/L (46-116); ANION GAP 10.6 mmol/L (5.0-14.0); ASPARTATE AMNIOTRANSFERASE,AST 23 U/L (15-37); BILIRUBIN TOTAL 0.6 mg/dL (0.2-1.0); BLOOD UREA NITROGEN,BUN 15 mg/dL (7-18); C-REACTIVE PROTEIN < 0.50 mg/dL (<0.50); CARBON DIOXIDE,CO2 28 mmol/L (21-32); CHLORIDE,CL 100 mmol/L (100-108); CREATININE 1.1 mg/dL (0.8-1.3); ESTIMATED GFR 74 mL/min (>60); GLUCOSE RANDOM 131 mg/dL (74-106); POTASSIUM,K 3.6 mmol/L (3.6-5.2); PROTEIN TOTAL,TP 7.5 g/dL (6.4-8.2); SODIUM,NA 135 mmol/L (140-148)
[2025-01-03 18:11] LABS: LACTIC ACID 1.7 mmol/L (0.4-2.0)
[2025-01-03 19:03] VITALS: BP 143/96; PULSE 73
== END 2025-01-03 19:00 | disposition home or self-care (01) ==
LOC: JP.ED 17:14
DX: R10.31 Right lower quadrant pain (principal); I10 Essential (primary) hypertension; E78.00 Pure hypercholesterolemia, unspecified; Z91.040 Latex allergy status; Z88.8 Allergy status to other drugs, medicaments and biological substances; Z79.899 Other long term (current) drug therapy
CPT/HCPCS: 36415; 74177; 80053; 83605; 84145; 85025; 86140; 99284; Q9967